=== PATIENT | female | born 2000 | race American Indian/Alaskan Native ===

== ENCOUNTER 2018-07-14 20:01 | Emergency (ER) | payer SELFPAY ==
[2018-07-14 20:09] VITALS: BP 126/75
--- NOTE | 2018-07-14 20:28 | Emergency Department Report ---
Blank Doc - Documentation Documentation: This is a 17-year-old female that presents with hematuria x1 episode. Patient denies any vaginal bleeding. Denies any symptoms or complaints. Stated is about 16 week . This initial assessment diagnostic orders/clinical plan/treatment(s) is/are subject to change based on patient's health status, clinical progression and re- assessment by fellow clinical providers in the ED. Further treatment and workup at subsequent clinical providers discretion. Patient/guardians urged not to elope from ED s their condition may be serious if not clinically assessed and managed. Initial orders include: 1-Patient sent to [facility] for further evaluation and treatment 2- UA
[2018-07-14 21:14] LABS: Basophils % (Auto) 0.8 % (0.0-1.8); Eosinophils # (Auto) 0.1 K/mm3 (0.0-0.4); Eosinophils % (Auto) 1.1 % (0.0-4.3); Hematocrit 38.3 % (30.3-42.9); Hemoglobin 13.5 gm/dl (10.1-14.3); Lymphocytes # (Auto) 2.3 K/mm3 (1.2-5.4); Lymphocytes % (Auto) 36.2 % (13.4-35.0); Mean Corpuscular HGB Conc 35 % (30-34); Mean Corpuscular Volume 89 fl (79-97); Monocytes # (Auto) 0.5 K/mm3 (0.0-0.8); Monocytes % (Auto) 7.4 % (0.0-7.3); Platelet Count 193 K/mm3 (140-440); Red Blood Count 4.29 M/mm3 (3.65-5.03); Red Cell Distribution Width 13.7 % (13.2-15.2)
[2018-07-14 22:24] LABS: Bilirubin,Urine NEG (Negative); Blood,Urine NEG (Negative); Calcium Oxalate Crystals,Urine 1+; Color,Urine Yellow (Yellow); Mucus,Urine 1+ /HPF; Urobilinogen,Urine < 2.0 mg/dL (<2.0)
== END 2018-07-14 23:59 | disposition left against medical advice (07) ==
LOC: ED 20:01
DX: R31.9 Hematuria, unspecified (principal); O86.20 Urinary tract infection following delivery, unspecified; Z3A.16 16 weeks gestation of pregnancy
CPT/HCPCS: 36415; 81001; 84702; 85025; 86850; 86900; 86901

== ENCOUNTER 2019-06-28 19:30 | Emergency (ER) | payer OTHER ==
[2019-06-28 19:47] VITALS: BP 135/80
--- NOTE | 2019-06-28 20:20 | Event Note ---
ED Screening Note Date of service: 06/28/19 Time: 20:17 ED Screening Note: Patient is a 18 yo AA female who presented to the ED with c/o acute onset onset severe sore throat for 3 days, dysphagia, and right ear pain. Patient denies dyspnea, nausea, vomiting, dizziness, chest pain, fever, chills, headache, nasal and sinus congestion. In the triage, patient is alert and oriented x 3 and is in no acute distress. Patient discharged home on pain medications, oral antibiotics for a suspected Strep pharyngitis. This initial assessment/diagnostic orders/clinical plan/treatment(s) is/are subject to change based on patients health status, clinical progression and re- assessment by fellow clinical providers in the ED. Further treatment and workup at subsequent clinical providers discretion. Patient/guardian urged not to elope from the ED as their condition may be serious if not clinically assessed and managed. Initial orders include: None: discharged from triage
--- NOTE | 2019-06-28 20:26 | Emergency Department Report ---
ED General Adult HPI - General Chief complaint: Sore Throat Stated complaint: SORE THROAT Source: patient Mode of arrival: Ambulatory Limitations: No Limitations - History of Present Illness Initial comments: Patient is a 18 yo AA female who presented to the ED with c/o acute onset onset severe sore throat for 3 days, dysphagia, and right ear pain. Patient denies dyspnea, nausea, vomiting, dizziness, chest pain, fever, chills, headache, nasal and sinus congestion. MD Complaint: Sore throat, dysphagia -: Sudden, days(s) (3) Location: mouth Radiation: non-radiation Severity scale (0 -10): 7 Quality: burning, aching, sharp Consistency: constant Improves with: none Worsens with: eating Associated Symptoms: denies other symptoms, loss of appetite. denies: chest pain, cough, diaphoresis, headaches, malaise, nausea/vomiting, rash, seizure, shortness of breath, syncope Treatments Prior to Arrival: none - Related Data Previous Rx's Medication Instructions Recorded Last Taken Type Ibuprofen [Motrin] 600 mg PO Q8H PRN #20 tablet 06/28/19 Unknown Rx Lidocaine Viscous 2% 10 ml PO Q6H PRN #120 ml 06/28/19 Unknown Rx Penicillin V Potassium 500 mg PO Q6H #40 tablet 06/28/19 Unknown Rx Allergies Allergy/AdvReac Type Severity Reaction Status Date / Time No Known Allergies Allergy Unverified 07/14/18 20:04 ED Review of Systems ROS: Stated complaint: SORE THROAT Other details as noted in HPI Constitutional: denies: chills, fever Eyes: denies: eye pain, eye discharge, vision change ENT: throat pain. denies: ear pain Respiratory: denies: cough, shortness of breath, wheezing Cardiovascular: denies: chest pain, palpitations Endocrine: no symptoms reported Gastrointestinal: denies: abdominal pain, nausea, diarrhea Genitourinary: denies: urgency, dysuria, discharge Musculoskeletal: denies: back pain, joint swelling, arthralgia Skin: denies: rash, lesions Neurological: denies: headache, weakness, paresthesias Psychiatric: denies: anxiety, depression Hematological/Lymphatic: denies: easy bleeding, easy bruising ED Past Medical Hx - Past Medical History Previous Medical History?: No - Surgical History Past Surgical History?: No - Social History Smoking Status: Never Smoker Substance Use Type: None - Medications Home Medications: Home Medications Medication Instructions Recorded Confirmed Last Taken Type Ibuprofen [Motrin] 600 mg PO Q8H PRN #20 tablet 06/28/19 Unknown Rx Lidocaine Viscous 2% 10 ml PO Q6H PRN #120 ml 06/28/19 Unknown Rx Penicillin V Potassium 500 mg PO Q6H #40 tablet 06/28/19 Unknown Rx ED Physical Exam - General Limitations: No Limitations General appearance: alert, in no apparent distress - Head Head exam: Present: atraumatic, normocephalic, normal inspection - Eye Eye exam: Present: normal appearance, PERRL, EOMI Pupils: Present: normal accommodation - ENT ENT exam: Present: mucous membranes moist, TM's normal bilaterally, normal external ear exam, other (erythematous oropharynxx and tonsils) - Neck Neck exam: Present: normal inspection, full ROM - Respiratory Respiratory exam: Present: normal lung sounds bilaterally. Absent: respiratory distress, wheezes, chest wall tenderness, accessory muscle use, decreased breath sounds - Cardiovascular Cardiovascular Exam: Present: normal rhythm, tachycardia, normal heart sounds. Absent: systolic murmur, diastolic murmur, rubs, gallop - GI/Abdominal GI/Abdominal exam: Present: soft, normal bowel sounds. Absent: tenderness, guarding, rebound, hyperactive bowel sounds, hypoactive bowel sounds - Extremities Exam Extremities exam: Present: normal inspection, full ROM, normal capillary refill - Back Exam Back exam: Present: normal inspection, full ROM. Absent: tenderness, CVA tenderness (R), CVA tenderness (L), muscle spasm, vertebral tenderness - Neurological Exam Neurological exam: Present: alert, oriented X3, CN II-XII intact, normal gait, reflexes normal - Psychiatric Psychiatric exam: Present: normal affect, normal mood - Skin Skin exam: Present: warm, dry, intact, normal color. Absent: rash ED Course Vital Signs 06/28/19 19:39 Temperature 97.8 F Pulse Rate 109 H Respiratory 18 Rate Blood Pressure 135/80 O2 Sat by Pulse 98 Oximetry ED Medical Decision Making - Medical Decision Making This is a 18 yo female who presented to the ED with c/o acute onset sore throat, dysphagia and right ear pain for 3 days. In the ED patient is alert and oriented x 3 and is in no acute distress. Patient was discharged home on pain medications and oral antibiotics for a suspected acute strep pharyngitis. Patient was advised to follow up with her PCP in 7-10 days for reevaluation or return to the ED immediately if symptoms get worse. - Differential Diagnosis Strep pharyngitis; FLU; URI; Lymphadenopathy Critical care attestation.: If time is entered above; I have spent that time in minutes in the direct care of this critically ill patient, excluding procedure time. ED Disposition Clinical Impression: Acute pharyngitis Qualifiers: Pharyngitis/tonsillitis etiology: other specified organisms Qualified Code(s): J02.8 - Acute pharyngitis due to other specified organisms Disposition: TO HOME OR SELFCARE Is pt being admited?: No Does the pt Need Aspirin: No Condition: Stable Instructions: Pharyngitis (ED), Strep Throat (ED) Additional Instructions: Take medications with food, drink plenty of fluids and follow up with your Primary Care Physician in 7-10 days for reevaluation. Return to the ED immediately if symptoms get worse Prescriptions: Lidocaine Viscous 2% 10 ml PO Q6H PRN #120 ml PRN Reason: Pain , Severe (7-10) Ibuprofen [Motrin] 600 mg PO Q8H PRN #20 tablet PRN Reason: Pain Penicillin V Potassium 500 mg PO Q6H #40 tablet Referrals: [facility] [Outside] - 7-10 days Time of Disposition: 20:22 Print Language: SPANISH
== END 2019-06-28 21:30 | disposition home or self-care (01) ==
LOC: ED 19:30
DX: J02.9 Acute pharyngitis, unspecified (principal); H92.01 Otalgia, right ear; Z79.899 Other long term (current) drug therapy